=== PATIENT | female | born 1995 | race Caucasian/White ===

== ENCOUNTER 2023-03-30 09:34 | Outpatient (REF) | payer MEDICAID, SELFPAY ==
[2023-03-30 11:35] LABS: MANUAL DIFF FLAG NO
[2023-03-30 12:05] LABS: Basophils Percent Auto 0.3 % (0-2); Eosinophils Absolute Auto 0.4 X10*3/uL (0.0-0.4); Hematocrit 39.3 % (37.0-47.0); Hemoglobin 13.1 g/dl (12.0-16.0); Imm Gran Abs Auto 0.01 X10*3/uL (0.00-0.03); Imm Gran Pct Auto 0.2 % (0.0-0.4); Lymphocytes Absolute Auto 1.6 X10*3/uL (1.2-4.9); Lymphocytes Percent Auto 25.9 % (20-40); Mean Corpuscular HGB Conc 33.3 g/dl (31.0-35.0); Mean Corpuscular Hemoglobin 29.9 pg (27.0-33.0); Mean Corpuscular Volume 89.7 fL (80.0-98.0); Mean Platelet Volume 10.8 fL (9.4-12.3); Monocytes Absolute Auto 0.6 X10*3/uL (0.1-1.2); Monocytes Percent Auto 9.7 % (2-11); Neutrophils Absolute Auto 3.5 x10*3/uL (2.0-8.3); Neutrophils Percent Auto 57.9 % (45-73); Platelet Count 262 X10*3/uL (160-400); Red Blood Count 4.38 X10*6/uL (4.20-5.50); Red Cell Distribution Width 11.9 % (11.0-16.0)
[2023-03-30 12:27] LABS: Alanine Aminotransferase 7 U/L (0-31); Albumin Level 4.3 g/dL (3.5-5.0); Alkaline Phosphatase 58 U/L (39-117); Anion Gap 10 (12-20); Aspartate Amino Transferase 14 U/L (5-31); Bilirubin Direct 0.2 mg/dL (0.0-0.5); Bilirubin Total 0.6 mg/dL (0.0-1.0); Blood Urea Nitrogen 17 mg/dL (9-16); Calcium 9.4 mg/dL (8.4-10.2); Carbon Dioxide 25 mmol/L (22-29); Chloride 106 mmol/L (96-108); Cholesterol 160 mg/dL (<200); Estimated Glomerular Filt Rate > 60; Glucose Random 92 mg/dL (60-115); HDL Cholesterol 68 mg/dL (>40); Iron 49 mcg/dL (30-160); LDL Cholesterol Calculated 86 mg/dL (<100); Magnesium 2.2 mg/dL (1.6-2.6); Percent Iron Saturation 19 % (15-50); Potassium 4.4 mmol/L (3.3-5.1); Sodium 137 mmol/L (135-145); Total Iron Binding Capacity 254 mcg/dL (228-428); Total Protein 7.7 g/dL (6.5-8.0); Triglycerides 34 mg/dL (<150); Unsaturated Iron Binding 205 ug/dL
[2023-03-30 12:29] LABS: Vitamin B12 560 pg/mL (200-900)
[2023-03-30 12:50] LABS: Ferritin 49 ng/mL (10-122); TSH reflex Free T4 0.81 uIU/mL (0.32-4.0); Vitamin D 25-OH Total 21.6 ng/mL (>30)
[2023-03-31 07:39] LABS: HIV AB/AG Nonreactive (Nonreactive); HIV Num 1 0.05 S/CO (0.00-0.99); ~Hepatitis C Antibody Nonreactive (Nonreactive)
[2023-03-31 14:59] LABS: RPR Rapid Plasma Reagin NON-REACTIVE (NON-REACTIVE)
== END 2023-03-30 09:35 | disposition home or self-care (01) ==
LOC: HO.HHCL 09:34
PROVIDERS: Visit Provider Family Medicine
DX: Z11.4 Encounter for screening for human immunodeficiency virus [HIV] (principal); Z11.3 Encounter for screening for infections with a predominantly sexual mode of transmission; R53.83 Other fatigue; R63.4 Abnormal weight loss; G43.009 Migraine without aura, not intractable, without status migrainosus
CPT/HCPCS: 36415; 80048; 80061; 80076; 82306; 82607; 82728; 83540; 83735; 84443; 85025; 86592; 86803; 87389

== ENCOUNTER 2023-04-21 13:24 | Outpatient (REF) | payer MEDICAID, SELFPAY ==
[2023-04-26 03:38] LABS: HPV mRNA E6/E7 Not Detected (Not Detected)
== END 2023-04-21 13:25 | disposition home or self-care (01) ==
LOC: HO.HHCLNP 13:24
PROVIDERS: Visit Provider Family Medicine
DX: Z11.3 Encounter for screening for infections with a predominantly sexual mode of transmission (principal)
CPT/HCPCS: 0353U; 87624; 88142